=== PATIENT | female | born 1990 | race Caucasian/White ===

== ENCOUNTER 2022-12-21 20:29 | Emergency (ER) | payer MEDICAID ==
[~2022-12-21] VITALS: Ht 167.6 cm; Wt 153.6 kg
[2022-12-21] MEDS ORDERED: PROAIR HFA0.09 MG/AC IH (21:23)
[2022-12-21] MEDS ORDERED: CETIRIZINE HCL10 MG PO (21:23)
[2022-12-21] MEDS ORDERED: FLUTICASON0.05 MG/Ac NS (21:23)
[2022-12-21 21:24] LABS: BASO # 0.03 K/mm3 (0.02-0.10); EOS # 0.15 K/mm3 (0.04-0.40); EOS % 2.3 % (1.0-5.0); HEMATOCRIT 39.4 % (37.0-47.0); HEMOGLOBIN 13.8 g/dL (12.5-16.0); LYMPH# 2.31 K/mm3 (1.50-4.00); MEAN CELL VOLUME 102 fl (78-100); MEAN CORPUSCULAR HEMOGLOBIN 36 pg (27-31); MEAN CORPUSCULAR HGB CONC 35 g/dL (33-37); MEAN PLATELET VOLUME 10.8 fl (7.4-10.4); MONO # 0.65 K/mm3 (0.20-0.80); NEU # 3.47 K/mm3 (1.40-6.50); PLATELET COUNT 172 K/mm3 (130-400); RED BLOOD COUNT 3.87 M/mm3 (4.10-5.30); RED CELL DISTRIBUTION WIDTH 11.7 % (11.5-14.5); WHITE BLOOD COUNT 6.6 K/mm3 (4.8-10.8)
[2022-12-21] MEDS ORDERED: VITAMIN D3125 MC2 PO (21:24)
[2022-12-21] MEDS ORDERED: CYCLOBENZAPRINE10 M1 PO (21:25)
[2022-12-21] MEDS ORDERED: NORETHINDRONE0.35 MG PO (21:26)
[2022-12-21] MEDS ORDERED: NATURE'S BLEND1 T11 PO (21:26)
[2022-12-21 21:32] LABS: ALBUMIN 3.8 g/dL (3.5-5.0)
[2022-12-21 21:35] LABS: TOTAL PROTEIN 6.9 g/dL (6.4-8.3)
[2022-12-21 21:36] LABS: TOTAL BILIRUBIN 0.9 mg/dL (0.2-1.2)
[2022-12-21 22:53] LABS: URINE APPEARANCE CLOUDY; URINE COLOR YELLOW
[2022-12-21 22:58] LABS: URINE BILIRUBIN 1+ (NEGATIVE); URINE BLOOD 250 ery/uL (NEGATIVE); URINE GLUCOSE NEGATIVE (NEGATIVE); URINE KETONE NEGATIVE (NEGATIVE); URINE LEUKOCYTE ESTERASE 1+ (NEGATIVE); URINE NITRATE NEGATIVE (NEGATIVE); URINE PROTEIN(semi-quant) TRACE (NEGATIVE); URINE UROBILINOGEN 1 mg/dL (NORMAL)
[2022-12-21 23:08] LABS: URINE MUCUS PRESENT (NOT PRESENT)
[2022-12-21] MEDS ORDERED: PROTONIX20 M1 PO (23:33)
[2022-12-21 23:48] VITALS: BP 117/74
== END 2022-12-21 23:48 ==
LOC: ED 20:29
PROVIDERS: Family Medicine
DX: R10.13 Epigastric pain (principal); R11.2 Nausea with vomiting, unspecified; R82.2 Biliuria; R10.11 Right upper quadrant pain; R10.12 Left upper quadrant pain; Z91.040 Latex allergy status

== ENCOUNTER → 2023-04-18 | Outpatient (CLI) | payer MEDICAID ==
[~2023-04-18] MED LIST: CETIRIZINE HCL10 MG PO; CYCLOBENZAPRINE10 M1 PO; FLUTICASON0.05 MG/Ac NS; NATURE'S BLEND1 T11 PO; NORETHINDRONE0.35 MG PO; PROAIR HFA0.09 MG/AC IH; PROTONIX20 M1 PO; VITAMIN D3125 MC2 PO
== END ==
LOC: LAB 16:52
DX: E03.4 Atrophy of thyroid (acquired) (principal); E03.9 Hypothyroidism, unspecified